=== PATIENT | male | born 1995 | race Hispanic/Latino ===

== ENCOUNTER 2019-03-24 13:38 | Emergency (ER) | payer BC ==
[2019-03-24] MEDS ORDERED: ONDANSETRON 4 MG/2 ML VIAL ONE (14:21)
[2019-03-24] MEDS ORDERED: MORPHINE 4 MG/ML SYR ONE (14:21)
--- NOTE | 2019-03-24 14:32 | ER ---
Nurse's Notes [facility] Name: Rashi Boone Age: 23 yrs Sex: Male : 1995 Arrival Date: 03/24/2019 Time: 13:49 Bed 27 Private MD: Diagnosis: Blister (nonthermal) of foot Presentation: 03/24 13:59 Presenting complaint: Patient states: "I've had a blister on my left foot for about 2 aa5 week and yesterday I noticed it was turning a little red and purple". Pt states "I wear boots for work". Transition of care: patient was not received from another setting of care. Onset of symptoms was March 2019. Risk Assessment: Do you want to hurt yourself or someone else? Patient reports no desire to harm self or others. Initial Sepsis Screen: Does the patient meet any 2 criteria? No. Patient's initial sepsis screen is negative. Does the patient have a suspected source of infection? No. Patient's initial sepsis screen is negative. Care prior to arrival: None. 13:59 Method Of Arrival: Ambulatory aa5 13:59 Acuity: MAIDA 5 aa5 Historical: - Allergies: 13:58 No Known Allergies; aa5 - PMHx: 13:58 None; aa5 - PSHx: 13:58 right ankle; aa5 - Immunization history:: Adult Immunizations up to date. - Social history:: Smoking status: Patient/guardian denies using tobacco. - Ebola Screening: : No symptoms or risks identified at this time. - Family history:: not pertinent. - Hospitalizations: : No recent hospitalization is reported. Screenin:46 Abuse screen: Denies threats or abuse. Denies injuries from another. Nutritional rv screening: No deficits noted. Tuberculosis screening: No symptoms or risk factors identified. Fall Risk None identified. Assessment: 14:44 General: Appears in no apparent distress. uncomfortable, Behavior is calm, cooperative. rv Pain: Complains of pain in left foot. Neuro: Level of Consciousness is awake, alert, obeys commands, Oriented to person, place, time, situation. Cardiovascular: Patient's skin is warm and dry. Respiratory: Airway is patent. GI: No signs and/or symptoms were reported involving the gastrointestinal system. : No signs and/or symptoms were reported regarding the genitourinary system. EENT: No signs and/or symptoms were reported regarding the EENT system. Derm: blisters. Musculoskeletal: No signs and/or symptoms reported regarding the musculoskeletal system. Vital Signs: 14:00 BP 121 / 67; Pulse 65; Resp 16 S; Temp 98.3(TE); Pulse Ox 100% on R/A; Weight 88.45 kg aa5 (R); Height 5 ft. 7 in. (170.18 cm) (R); Pain 4/10; 14:00 Body Mass Index 30.54 (88.45 kg, 170.18 cm) [facility] ED Course: 13:49 Patient arrived in ED. mr 13:58 Arm band placed on. aa5 14:00 Triage completed. aa 14:09 Aristides Vale, ANIA is Primary Nurse. rv 14:20 Krishna Kirkpatrick MD is Attending Physician. rn 14:46 Patient has correct armband on for positive identification. Bed in low position. Call rv light in reach. Side rails up X 1. Pulse ox on. NIBP on. 14:46 No provider procedures requiring assistance completed. Patient did not have IV access rv during this emergency room visit. Administered Medications: No medications were administered Outcome: 14:31 Discharge ordered by . rn 14:47 Discharged to home ambulatory. rv 14:47 Condition: good 14:47 Discharge instructions given to patient, Instructed on discharge instructions, follow up and referral plans. medication usage, wound care, Demonstrated understanding of instructions, follow-up care, medications, wound care, Prescriptions given X 1. 14:47 Patient left the ED. rv Signatures: Radha Monroe mr Krsihna Kirkpatrick MD MD rn Calderon, Audri, RN RN [facility] Aristides Vale RN RN rv
--- NOTE | 2019-03-24 14:32 | EDPHYS ---
Physician Documentation [facility] Name: Rashi Boone Age: 23 yrs Sex: Male : 1995 Arrival Date: 03/24/2019 Time: 13:49 Bed 27 Private MD: ED Physician Krishna Kirkpatrick HPI: 03/24 14:27 This 23 yrs old Male presents to ER via Ambulatory with complaints of Blister rn on foot. 14:27 The patient presents with blister. The complaints affect the left foot. Onset: The rn symptoms/episode began/occurred 2 week(s) ago. Modifying factors: The symptoms are alleviated by nothing, the symptoms are aggravated by weight bearing, movement, wearing shoes. Severity of symptoms: At their worst the symptoms were mild, in the emergency department the symptoms are unchanged. The patient has not experienced similar symptoms in the past. Reports left foot blister for 2 weeks, no fever, reports wears boots and rubs, no drainage, not growing in size but bothersome.. Historical: - Allergies: 13:58 No Known Allergies; aa5 - PMHx: 13:58 None; aa5 - PSHx: 13:58 right ankle; aa5 - Immunization history:: Adult Immunizations up to date. - Social history:: Smoking status: Patient/guardian denies using tobacco. - Ebola Screening: : No symptoms or risks identified at this time. - Family history:: not pertinent. - Hospitalizations: : No recent hospitalization is reported. ROS: 14:27 Constitutional: Negative for fever, chills, and weight loss, MS/Extremity: + blister on rn left foot/instep Exam: 14:27 Constitutional: This is a well developed, well nourished patient who is awake, alert, rn and in no acute distress. Ambulatory to room without difficulty or assistance, not limping. MS/ Extremity: Pulses equal, no cyanosis. Neurovascular intact. Full, normal range of motion. Equal circumference. + large callus formation left foot at instep/base of large toe, immediately next to it is subcentimeter blister/white base, no fluctuance, no surrounding erythema, no streaking. Vital Signs: 14:00 BP 121 / 67; Pulse 65; Resp 16 S; Temp 98.3(TE); Pulse Ox 100% on R/A; Weight 88.45 kg aa5 (R); Height 5 ft. 7 in. (170.18 cm) (R); Pain 4/10; 14:00 Body Mass Index 30.54 (88.45 kg, 170.18 cm) aa5 MDM: 14:20 Patient medically screened. rn 14:27 Differential diagnosis: cellulitis, blister. Data reviewed: vital signs, nurses notes, rn and as a result, I will discharge patient. Counseling: I had a detailed discussion with the patient and/or guardian regarding: the historical points, exam findings, and any diagnostic results supporting the discharge/admit diagnosis, the need for outpatient follow up, to return to the emergency department if symptoms worsen or persist or if there are any questions or concerns that arise at home. Special discussion: I discussed with the patient/guardian in detail that at this point there is no indication for admission to the hospital. It is understood, however, that if the symptoms persist or worsen the patient needs to return immediately for re-evaluation. Based on the history and exam findings, there is no indication for further emergent testing or inpatient evaluation. I discussed with the patient/guardian the need to see the foot and ankle surgeon for further evaluation of the symptoms. Administered Medications: No medications were administered Disposition: 03/24/19 14:31 Discharged to Home. Impression: Blister (nonthermal) of foot. - Condition is Stable. - Discharge Instructions: Blisters, Adult. - Prescriptions for Clindamycin HCl 300 mg Oral Capsule - take 1 capsule by ORAL route every 6 hours for 10 days; 40 capsule. - Work release form, Medication Reconciliation Form, Thank You Letter, Antibiotic Education, Prescription Opioid Use form. - Follow up: Private Physician; When: As needed; Reason: Recheck today's complaints, Re-evaluation by your physician. - Problem is new. - Symptoms have improved. Signatures: Krishna Kirkpatrick MD MD rn Calderon, Audri RN RN aa5 Aristides Vale RN RN rv Corrections: (The following items were deleted from the chart) 14:47 14:31 03/24/2019 14:31 Discharged to Home. Impression: Blister (nonthermal) of foot. rv Condition is Stable. Forms are Medication Reconciliation Form, Thank You Letter, Antibiotic Education, Prescription Opioid Use. Follow up: Private Physician; When: As needed; Reason: Recheck today's complaints, Re-evaluation by your physician. Problem is new. Symptoms have improved. rn
== END 2019-03-24 14:47 | disposition home or self-care (01) ==
LOC: ER 13:38
DX: S90.822A Blister (nonthermal), left foot, initial encounter (principal)
CPT/HCPCS: 99283; J2405